=== PATIENT | male | born 1995 | race Two or more races ===

== ENCOUNTER 2020-01-25 16:18 | Emergency (ER) | payer OTHER, MEDICAID ==
[~2020-01-25] VITALS: Ht 165.1 cm; Wt 113.4 kg
[2020-01-25 16:43] VITALS: BP 132/87
== END 2020-01-25 18:05 | disposition home or self-care (01) ==
LOC: EDBD → ER 16:18
DX: J06.9 Acute upper respiratory infection, unspecified (principal); Z88.0 Allergy status to penicillin; Z88.8 Allergy status to other drugs, medicaments and biological substances
CPT/HCPCS: 71045

== ENCOUNTER 2020-02-07 14:07 | Emergency (ER) | payer MEDICAID, OTHER ==
[~2020-02-07] VITALS: Ht 165.1 cm; Wt 110.2 kg
[2020-02-07 14:24] VITALS: BP 134/79
[2020-02-07] MEDS ORDERED: KETOROLAC TROMETH 60MG/2ML VIAL IM ONE (15:00)
== END 2020-02-07 15:45 | disposition home or self-care (01) ==
LOC: ER 14:07
DX: S39.012A Strain of muscle, fascia and tendon of lower back, initial encounter (principal); Z88.0 Allergy status to penicillin; Z88.8 Allergy status to other drugs, medicaments and biological substances; X50.9XXA Other and unspecified overexertion or strenuous movements or postures, initial encounter; Y93.89 Activity, other specified; Y92.89 Other specified places as the place of occurrence of the external cause; Y99.8 Other external cause status
CPT/HCPCS: 81002; 96372; 99283; J1885

== ENCOUNTER 2020-03-04 17:46 | Emergency (ER) | payer OTHER, MEDICAID ==
[~2020-03-04] VITALS: Ht 165.1 cm; Wt 119.3 kg
[2020-03-04] MEDS ORDERED: ASPirin 81 mg TAB PO ONE (18:00)
[2020-03-04 18:38] LABS: Albumin 3.7 g/dL (3.4-5.0); Anion Gap 4 (5-15); Blood Urea Nitrogen 16 mg/dL (7-18); Calcium 8.2 mg/dL (8.5-10.1); Carbon Dioxide 28 mmol/L (21-32); Chloride 108 mmol/L (98-107); Glucose 94 mg/dL (74-106); Potassium 4.3 mmol/L (3.5-5.1); Sodium 140 mmol/L (136-145)
[2020-03-04 18:40] LABS: Basophils # (auto) 0.1 10 ^3/uL (0-0.2); Basophils % (auto) 0.7 % (0.0-2.0); Eosinophils # (auto) 0.1 10 ^3/uL (0-0.8); Mean Corpuscular Volume 81.6 fL (80.0-100.0); Monocytes # (auto) 0.8 10 ^3/uL (0-1.3); Red Cell Distribution Width 14.4 % (11.8-14.3)
[2020-03-04 18:42] LABS: White Blood Cell 7.8 10^3/uL (4.4-10.8)
[2020-03-04 18:43] LABS: Eosinophils % (auto) 1.1 % (0.0-7.0); Hematocrit 45.5 % (41.0-53.0); Hemoglobin 14.7 g/dL (13.5-17.5); Lymphocytes # (auto) 1.8 10 ^3/uL (0.4-5.4); Lymphocytes % (auto) 23.3 % (10.0-50.0); Mean Corpuscular Hemoglobin 26.3 pg (28.0-32.0); Mean Corpuscular Hgb Conc. 32.3 g/dL (32.0-36.0); Monocytes % (auto) 9.9 % (0.0-12.0); Neutrophils # (auto) 5.1 10 ^3/uL (1.6-8.6); Nucleated Red Blood Cells % 0.2 %; Platelet Count (auto) 324 10^3/uL (140-450); Red Blood Cells 5.58 10^6/uL (4.5-5.90)
[2020-03-04 18:45] LABS: Alanine Aminotransferase 50 U/L (16-61); Alkaline Phosphatase 59 U/L (45-117); Aspartate Aminotransferase 23 U/L (15-37); BUN/Creatinine Ratio 16.3; Bilirubin, Total 0.2 mg/dL (0.2-1.0); GFR African American 121 mL/min; GFR Non-African American 100 mL/min; Total Protein 7.3 g/dL (6.4-8.2)
[2020-03-04 19:21] VITALS: BP 116/50
== END 2020-03-04 19:29 | disposition home or self-care (01) ==
LOC: ER 17:46
DX: R07.89 Other chest pain (principal)
CPT/HCPCS: 36415; 71045; 80053; 84484; 85025; 93005

== ENCOUNTER 2020-05-08 18:27 | Emergency (ER) | payer OTHER, MEDICAID ==
[~2020-05-08] VITALS: Ht 165.1 cm; Wt 108.9 kg
[2020-05-08 22:09] VITALS: BP 143/86
== END 2020-05-08 21:25 | disposition home or self-care (01) ==
LOC: ER 18:32
DX: J02.9 Acute pharyngitis, unspecified (principal); R51.9 Headache, unspecified; Z20.828 Contact with and (suspected) exposure to other viral communicable diseases; Z88.0 Allergy status to penicillin
CPT/HCPCS: 36415; 71045; 87070; 87426; 87880; 99284; C9803; U0003